=== PATIENT | female | born 1970 | race Caucasian/White ===

== ENCOUNTER 2018-02-14 13:29 | Inpatient (IN) | payer SELFPAY ==
[~2018-02-14] VITALS: Ht 167.6 cm; Wt 176.6 kg
--- NOTE | ~2018-02-14 | MORECARE ---
CASE MANAGEMENT DISCHARGE SUMMARY PATIENT: HECTOR BALDERRAMA UNIT: [id number] ADM DATE: 02/14/18 AGE: 47 : 74 SEX: F ROOM/BED: D.2202 AUTHOR: DARRYN VIVAR PHYSICIAN: REFERRING PHYSICIAN: HORTENSIA SABILLON MD DATE OF SERVICE: 02/23/18 Discharge Plan Patient Name: HECTOR BALDERRAMA Facility: [facility]:[place] : 1970 Planned Disposition: Home Anticipated Discharge Date: Discharge Date: 02/18/2018 Expected LOS: 0 Initial Reviewer: [email or web address] Initial Review Date: 02/14/2018 Generated: 02/23/18 11:00 am Comments DCP- Discharge Planning Updated by [email or web address]: Violeta Sue on 02/18/18 12:[address] Patient Name: HECTOR BALDERRAMA Encounter No: [id number] : 1970 Primary Insurance: UNINSURED DISCOUNT PLAN Anticipated DC Date: Planned Disposition: Home External Planned Provider: : DCP follow-up note: Patient and family in agreement with discharge plan. No changes to plan. Case management will follow and assist as needed. Violeta Sue DCP- Discharge Planning Updated by [email or web address]: Violeta Sue on 02/16/18 9:[address] Patient Name: HECTOR BALDERRAMA Admission Status: ER Accout number: [id number] Admission Date: 02-14-2018 : 1970 Admission Diagnosis: Attending: HORTENSIA SABILLON Current LOS: 2 Anticipated DC Date: Planned Disposition: Home Primary Insurance: UNINSURED DISCOUNT PLAN Discharge Planning Comments: CM met with patient to assess discharge planning needs. Patient stated that she is independent with her care at home, she lives with her mother who will be her route driver salesperson home. She stated that she feels safe at her home. She has a CPAP machine from [facility] Patient. There are no steps of stairs in her home. She is unsure if she will need home health at discharge. CM will continue to follow and assist with DC planning Guard Manager: Violeta Sue DCPIA - Discharge Planning Initial Assessment Updated by [email or web address]: Violeta Sue on 02/16/18 10:39 am * Is the patient Alert and Oriented? Yes * How many steps to enter\exit or inside your home? * PCP [facility] * Pharmacy [facility] [address] * Preadmission Environment Home with Family * ADLs Independent * Equipment CPAP * List name and contact numbers for known caregivers / representatives who currently or will assist patient after discharge: RISHABH WHALEN [phone] * Verbal permission to speak to the caregivers and representatives has been obtained from the patient. Yes * Community resources currently utilized None * Additional services required to return to the preadmission environment? No * Can the patient safely return to the preadmission environment? Yes * Has this patient been hospitalized within the prior 30 days at any hospital? No Last DP export: 02/18/18 12:47 Patient Name: HECTOR BALDERRAMA Page [id number] at 1000 All edits/amendments must be made on the electronic document DICTATION DATE: 02/23/18958 CLIENT TECHNICAL SPECIALIST: DJAA 02/23/18958 RPT#: [id number] DC DATE:02/18/18 STATUS: DIS IN [facility] [address] [place] [address] END OF REPORT
--- NOTE | ~2018-02-14 | MORECARE ---
CASE MANAGEMENT DISCHARGE SUMMARY PATIENT: HECTOR BALDERRAMA UNIT: [id number] ADM DATE: 02/14/18 AGE: 47 : 74 SEX: F ROOM/BED: D.2202 AUTHOR: DARRYN VIVAR PHYSICIAN: REFERRING PHYSICIAN: HORTENSIA SABILLON MD DATE OF SERVICE: 02/16/18 Discharge Plan Patient Name: HECTOR BALDERRAMA Facility: [facility]:[place] : 1970 Planned Disposition: Home Anticipated Discharge Date: Discharge Date: Expected LOS: Initial Reviewer: [email or web address] Initial Review Date: 02/14/2018 Generated: 02/16/18 11:44 am Comments DCP- Discharge Planning Updated by [email or web address]: Violeta Sue on 02/16/18 9:[address] Patient Name: HECTOR BALDERRAMA Admission Status: ER Accout number: [id number] Admission Date: 02-14-2018 : 1970 Admission Diagnosis: Attending: HORTENSIA SABILLON Current LOS: 2 Anticipated DC Date: Planned Disposition: Home Primary Insurance: UNINSURED DISCOUNT PLAN Discharge Planning Comments: CM met with patient to assess discharge planning needs. Patient stated that she is independent with her care at home, she lives with her mother who will be her dump truck driver [address] [place] She stated that she feels safe at her home. She has a CPAP machine from [facility] Patient. There are no steps of stairs in her home. She is unsure if she will need home health at discharge. CM will continue to follow and assist with DC planning Credit Card Control Clerk: Violeta Sue DCPIA - Discharge Planning Initial Assessment Updated by [email or web address]: Violeta Sue on 02/16/18 10:39 am * Is the patient Alert and Oriented? Yes * How many steps to enter\exit or inside your home? * PCP * Pharmacy [facility] [address] * Preadmission Environment Home with Family * ADLs Independent * Equipment CPAP * List name and contact numbers for known caregivers / representatives who currently or will assist patient after discharge: RISHABH WHALEN [phone] * Verbal permission to speak to the caregivers and representatives has been obtained from the patient. Yes * Community resources currently utilized None * Additional services required to return to the preadmission environment? No * Can the patient safely return to the preadmission environment? Yes * Has this patient been hospitalized within the prior 30 days at any hospital? No Patient Name: HECTOR BALDERRAMA Page [id number] at 1044 All edits/amendments must be made on the electronic document DICTATION DATE: 02/16/181042 INSPECTOR COATED [employer]AB[employer]: DAJA 02/16/18 1043 RPT#: [id number] DC DATE: STATUS: ADM IN [facility] [address] [place] [address] END OF REPORT
--- NOTE | ~2018-02-14 | HP ---
PATIENT: HECTOR BALDERRAMA MEDICAL RECORD: [id number] ACCOUNT: [id number] LOCATION:[address] : [birth year] ADMISSION DATE: 02/14/18 PCP: HORTENSIA LOO MD HISTORY AND PHYSICAL EXAMINATION DATE OF ADMISSION: 02/14/2018 CHIEF COMPLAINT: Bilateral lower extremity pain and swelling. HISTORY OF PRESENT ILLNESS: This 47-year-old female who was brought in today for bilateral lower extremity pain and swelling, redness. She has been living with her mother for an unknown period of time as she is from her . She apparently has sleep apnea and has been on CPAP for over 2-1/2 years but states recently she has walked in her sleep, moving around in her sleep, taking her phone and actually recording what she is doing in her sleep. The report is she has fallen a few times and most of these symptoms are all in the last couple of weeks. She has seen Dr. Loo and it was almost 2-1/2 years. When asked when she saw him last she thought it was just several months ago. In the ER, she had a 4+ edema with some venous stasis disease and some cellulitis. She has a significant indentation just above her ankles where it looks like her socks have "dug in," causing pain and open wounds. She denies fever or chills. No chest pain or shortness of breath. She is admitted for venous stasis disease and cellulitis wound care. PAST MEDICAL HISTORY: Morbidly obese, hypothyroidism, osteoarthritis, and obstructive sleep apnea - on CPAP. PAST SURGICAL HISTORY: She had in 2000. She has had right knee arthroscopy. CURRENT MEDICATIONS: None. According to Dr. Loo's note, she was on diclofenac, omeprazole, and levothyroxine 50 mcg. She states she stopped those medicines over time. She could not tell me how long she has not been on any of these medicines, but it has most likely been several months if not longer. ALLERGIES: None. SOCIAL HISTORY: , now living with her mother for an unknown period of time. HABITS: No tobacco, alcohol or drugs. FAMILY HISTORY: Mother is alive in the room with her today. She has no diabetes, heart disease or cancer. She states she has large legs and swelling. The patient's father is alive and he has a history of coronary artery disease, has a pacemaker. REVIEW OF SYSTEMS: GENERAL: She has gained weight over time but not really sure how much. HEENT: No particular sinus or allergy problems. RESPIRATORY: She has admitted to some shortness of breath but denies any known diagnosis of asthma, COPD or emphysema. HISTORY AND PHYSICAL [id number] HECTOR BALDERRAMA CARDIAC: No history of heart trouble. GASTROINTESTINAL: She has had some heartburn in the past but denies any problems now. GENITOURINARY: No significant urinary tract infections. MUSCULOSKELETAL: Few arthritic aches and pains. NEUROLOGIC: No migraines or seizures. PSYCHIATRIC: Without depression or melancholia. PHYSICAL EXAMINATION: VITAL SIGNS: Temperature 98.6, pulse 90, respirations 20, blood pressure 143/86, O2 sat 96% on room air. GENERAL: She is morbidly obese, awake and alert, does not appear in acute distress. Her mother is at bedside. HEENT: Grossly within normal limits. NECK: Supple. No JVD or bruit. HEART: Regular rate and rhythm without murmur. LUNGS: Clear. ABDOMEN: Soft, flat, obese, nontender. EXTREMITIES: Show large legs. There is what is most likely chronic edema, very little pitting edema. She has what appears to be cellulitis and some skin changes consistent with venous stasis disease. There are circumferential lesions around both ankles. There is no drainage from the knees. There is erythema. There is lots of scaliness on the feet around toes consistent with what may be a yeast infection. LABORATORY DATA: Lactic acid 1.1. CBC with a white count of 9000, hemoglobin 11, hematocrit 37.8. Basic metabolic panel is normal. Liver functions are okay. D-dimer elevated at 1.6, proBNP 411. Troponin less than 0.017. TSH is 3.65. IMAGING: Chest x-ray shows no acute abnormalities. ASSESSMENT: 1. Cellulitis, lower extremities. 2. Chronic edema. 3. Acute edema. 4. Venous stasis disease, most likely yeast dermatitis. PLAN: Wound care, IV antibiotics, Diflucan and wound care consult. We will check a T3, free T4. Other tests and procedures as warranted. TRANSINT:[id number] Voice Confirmation ID: [id number] DOCUMENT ID: [id number] HISTORY AND PHYSICAL [id number] HECTOR BALDERRAMA WILLIAM MD at 1401 CC: [id number] DICTATION DATE: 02/14/18 183 SERVER SERVICE ASSISTANT: 02/14/18 2342 ADM IN [facility] [address] [id number]
--- NOTE | ~2018-02-14 | MORECARE ---
CASE MANAGEMENT DISCHARGE SUMMARY PATIENT: HECTOR BALDERRAMA UNIT: [id number] ADM DATE: 02/14/18 AGE: 47 : 74 SEX: F ROOM/BED: D.2202 AUTHOR: DARRYN VIVAR PHYSICIAN: REFERRING PHYSICIAN: HORTENSIA SABILLON MD DATE OF SERVICE: 02/18/18 Discharge Plan Patient Name: HECTOR BALDERRAMA Facility: [facility]:[place] : 1970 Planned Disposition: Home Anticipated Discharge Date: Discharge Date: Expected LOS: Initial Reviewer: [email or web address] Initial Review Date: 02/14/2018 Generated: 02/18/18 2:46 pm Comments DCP- Discharge Planning Updated by [email or web address]: Violeta Sue on 02/18/18 12:[address] Patient Name: HECTOR BALDERRAMA Encounter No: [id number] : 1970 Primary Insurance: UNINSURED DISCOUNT PLAN Anticipated DC Date: Planned Disposition: Home External Planned Provider: : DCP follow-up note: Patient and family in agreement with discharge plan. No changes to plan. Case management will follow and assist as needed. Violeta Sue DCP- Discharge Planning Updated by [email or web address]: Violeta Sue on 02/16/18 9:[address] Patient Name: HECTOR BALDERRAMA Admission Status: ER Accout number: [id number] Admission Date: 02-14-2018 : 1970 Admission Diagnosis: Attending: HORTENSIA SABILLON Current LOS: 2 Anticipated DC Date: Planned Disposition: Home Primary Insurance: UNINSURED DISCOUNT PLAN Discharge Planning Comments: CM met with patient to assess discharge planning needs. Patient stated that she is independent with her care at home, she lives with her mother who will be her drivers' cash clerk home. She stated that she feels safe at her home. She has a CPAP machine from [facility] Patient. There are no steps of stairs in her home. She is unsure if she will need home health at discharge. CM will continue to follow and assist with DC planning Lighting Engineer: Violeta Sue DCPIA - Discharge Planning Initial Assessment Updated by [email or web address]: Violeta Sue on 02/16/18 10:39 am * Is the patient Alert and Oriented? Yes * How many steps to enter\exit or inside your home? * PCP [facility] * Pharmacy [facility] [address] * Preadmission Environment Home with Family * ADLs Independent * Equipment CPAP * List name and contact numbers for known caregivers / representatives who currently or will assist patient after discharge: RISHABH WHALEN [phone] * Verbal permission to speak to the caregivers and representatives has been obtained from the patient. Yes * Community resources currently utilized None * Additional services required to return to the preadmission environment? No * Can the patient safely return to the preadmission environment? Yes * Has this patient been hospitalized within the prior 30 days at any hospital? No Last DP export: 02/16/18 9:44 Patient Name: HECTOR BALDERRAMA Page 41346 at 1347 All edits/amendments must be made on the electronic document DICTATION DATE: 02/18/186 [employer] [facility] AGENT: DAJA 02/18/18 1346 RPT#: [id number] DC DATE: STATUS: ADM IN [facility] [address] [place] [address] END OF REPORT
[2018-02-14 15:34] LABS: BASOPHILS 0.2 % (0-2); EOSINOPHILS 4.1 % (0-7); HEMATOCRIT 37.8 % (36.0-48.0); IMMATURE GRANULOCYTES 0.2 % (0-5); LYMPHOCYTES 15.4 % (15-50); MCH 23.3 pg (26.0-34.0); MCHC 29.1 g/dL (31.0-37.0); MCV 79.9 fL (80.0-100.0); MEAN PLATELET VOLUME 9.8 fL (7.4-10.4); MONOCYTES 5.9 % (2-11); NEUTROPHILS 74.2 % (40-80); PLATELET COUNT 362 10x3/uL (130-400); RBC 4.73 10x6/uL (4.00-5.40); RDW 16.8 % (11.5-14.5)
[2018-02-14 15:47] LABS: ALBUMIN 3.5 g/dL (3.4-5.0); ALKALINE PHOSPHATASE 90 U/L (46-116); ALT (SGPT) 39 U/L (10-68); BILIRUBIN - TOTAL 0.23 mg/dL (0.2-1.3); CALC OSMOLALITY 283 mosm/kg (275-300); CALCIUM 8.8 mg/dL (8.5-10.1); CARBON DIOXIDE 30.8 mmol/L (21.0-32.0); CHLORIDE - SERUM 103 mmol/L (98-107); CREATININE - SERUM 0.8 mg/dL (0.6-1.3); GLUCOSE 94 mg/dL (74-106); PROTEIN - SERUM 8.1 g/dL (6.4-8.2); SODIUM 143 mmol/L (136-145); UREA NITROGEN 11 mg/dL (7-18); eGFR NON AFRICAN AMERICAN 82 mL/min (90-120)
[2018-02-14 15:55] LABS: PRO BNP 411 pg/mL (0-125)
[2018-02-14 16:00] LABS: TROPONIN-I < 0.017 ng/mL (0.000-0.060)
[2018-02-14] MEDS ORDERED: B-12 DOTS500 MCG PO (17:40)
[2018-02-14 17:43] VITALS: BP 143/80; Ht 167.6 cm; Wt 176.6 kg
[2018-02-14 19:55] LABS: T4 THYROXINE 8.3 ug/dL (4.7-13.3)
[2018-02-14 20:04] VITALS: BP 148/82
[2018-02-15 04:00] VITALS: BP 119/72
[2018-02-15 06:32] LABS: CALC OSMOLALITY 286 mosm/kg (275-300); CALCIUM 8.6 mg/dL (8.5-10.1); CARBON DIOXIDE 35.1 mmol/L (21.0-32.0); CHLORIDE - SERUM 101 mmol/L (98-107); CREATININE - SERUM 0.8 mg/dL (0.6-1.3); GLUCOSE 116 mg/dL (74-106); POTASSIUM - SERUM 4.2 mmol/L (3.5-5.1); SODIUM 144 mmol/L (136-145); UREA NITROGEN 9 mg/dL (7-18); eGFR NON AFRICAN AMERICAN 82 mL/min (90-120)
[2018-02-15 07:13] LABS: BASOPHILS 0.3 % (0-2); EOSINOPHILS 4.8 % (0-7); HEMOGLOBIN 11.3 g/dL (12-16); IMMATURE GRANULOCYTES 0.2 % (0-5); LYMPHOCYTES 24.2 % (15-50); MCH 23.5 pg (26.0-34.0); MCV 81.1 fL (80.0-100.0); MEAN PLATELET VOLUME 9.4 fL (7.4-10.4); MONOCYTES 6.9 % (2-11); NEUTROPHILS 63.6 % (40-80); PLATELET COUNT 332 10x3/uL (130-400); RBC 4.81 10x6/uL (4.00-5.40); RDW 17.2 % (11.5-14.5); WBC 5.8 10x3/uL (4.8-10.8)
[2018-02-15 09:22] VITALS: BP 109/79
[2018-02-15 15:23] VITALS: BP 141/82
[2018-02-15 19:56] VITALS: BP 143/74
[2018-02-16] VITALS (7 sets, daily range): BP systolic 134–175; BP diastolic 75–85
[2018-02-16 04:08] LABS: BASOPHILS 0.2 % (0-2); EOSINOPHILS 5.7 % (0-7); HEMATOCRIT 35.9 % (36.0-48.0); HEMOGLOBIN 10.3 g/dL (12-16); IMMATURE GRANULOCYTES 0.2 % (0-5); LYMPHOCYTES 26.1 % (15-50); MCH 22.9 pg (26.0-34.0); MCHC 28.7 g/dL (31.0-37.0); MCV 79.8 fL (80.0-100.0); MEAN PLATELET VOLUME 9.7 fL (7.4-10.4); MONOCYTES 7.3 % (2-11); NEUTROPHILS 60.5 % (40-80); PLATELET COUNT 338 10x3/uL (130-400); RDW 16.9 % (11.5-14.5); WBC 5.6 10x3/uL (4.8-10.8)
[2018-02-16 04:20] LABS: CALCIUM 8.9 mg/dL (8.5-10.1); CARBON DIOXIDE 36.4 mmol/L (21.0-32.0); CREATININE - SERUM 0.9 mg/dL (0.6-1.3); POTASSIUM - SERUM 3.4 mmol/L (3.5-5.1)
[2018-02-16 07:54] LABS: T4 THYROXIN - FREE 1.08 ng/dL (0.76-1.46); THYROID STIMULATING HORMONE 2.82 uIU/mL (0.36-3.74)
[2018-02-17 04:36] VITALS: BP 131/83
[2018-02-17 04:50] LABS: BASOPHILS 0.4 % (0-2); EOSINOPHILS 4.5 % (0-7); HEMOGLOBIN 10.6 g/dL (12-16); LYMPHOCYTES 20.5 % (15-50); MCH 23.2 pg (26.0-34.0); MCHC 29.4 g/dL (31.0-37.0); MCV 78.8 fL (80.0-100.0); MEAN PLATELET VOLUME 9.8 fL (7.4-10.4); MONOCYTES 6.7 % (2-11); NEUTROPHILS 67.9 % (40-80); PLATELET COUNT 315 10x3/uL (130-400); RBC 4.57 10x6/uL (4.00-5.40); RDW 16.9 % (11.5-14.5)
[2018-02-17 04:55] LABS: WBC 7.1 10x3/uL (4.8-10.8)
[2018-02-17 05:10] LABS: CALCIUM 8.9 mg/dL (8.5-10.1); CARBON DIOXIDE 35.6 mmol/L (21.0-32.0); CREATININE - SERUM 0.9 mg/dL (0.6-1.3); POTASSIUM - SERUM 3.6 mmol/L (3.5-5.1)
[2018-02-17 08:26] VITALS: BP 136/84
[2018-02-17 12:00] VITALS: BP 139/85
[2018-02-17 16:09] VITALS: BP 145/82
[2018-02-17 21:21] VITALS: BP 121/77
[2018-02-18 04:40] LABS: BASOPHILS 0.2 % (0-2); HEMATOCRIT 38.4 % (36.0-48.0); HEMOGLOBIN 11.2 g/dL (12-16); IMMATURE GRANULOCYTES 0.2 % (0-5); LYMPHOCYTES 21.8 % (15-50); MCHC 29.2 g/dL (31.0-37.0); MEAN PLATELET VOLUME 9.6 fL (7.4-10.4); MONOCYTES 6.5 % (2-11); NEUTROPHILS 66.3 % (40-80); PLATELET COUNT 337 10x3/uL (130-400); RBC 4.86 10x6/uL (4.00-5.40); WBC 6.1 10x3/uL (4.8-10.8)
[2018-02-18 05:07] LABS: CARBON DIOXIDE 34.8 mmol/L (21.0-32.0); CREATININE - SERUM 0.9 mg/dL (0.6-1.3); POTASSIUM - SERUM 3.8 mmol/L (3.5-5.1)
[2018-02-18 05:10] VITALS: BP 152/79
[2018-02-18 08:30] VITALS: BP 135/80
[2018-02-18 12:45] VITALS: BP 129/73
[2018-02-18] MEDS ORDERED: METFORMIN HCL500 M1 PO (13:09)
[2018-02-18] MEDS ORDERED: WELLBUTRIN SR150 MG PO (13:09)
[2018-02-18] MEDS ORDERED: K-TAB10 MEQ PO (13:10)
[2018-02-18] MEDS ORDERED: CLEOCIN HCL300 MG PO (13:11)
[2018-02-18] MEDS ORDERED: LASIX40 MG PO (13:12)
[2018-02-18] MEDS ORDERED: BACTROBAN CREAM15 GM TOPICAL (13:13)
== END 2018-02-18 16:46 | disposition home or self-care (01) | DRG 300 ==
LOC: D.ER 13:29 → D.MS 15:46 → D.M2 15:46 → OBSVTIME 15:46 → D.EDHOLD 16:07 → D.MS 16:16
PROVIDERS: Family Medicine
DX: I87.2 Venous insufficiency (chronic) (peripheral) (principal); L03.116 Cellulitis of left lower limb; L03.115 Cellulitis of right lower limb; Z68.42 Body mass index [BMI] 45.0-49.9, adult; R09.02 Hypoxemia; E87.6 Hypokalemia; E66.01 Morbid (severe) obesity due to excess calories; E11.9 Type 2 diabetes mellitus without complications; Z79.84 Long term (current) use of oral hypoglycemic drugs; R60.9 Edema, unspecified; G47.33 Obstructive sleep apnea (adult) (pediatric); S91.001A Unspecified open wound, right ankle, initial encounter